=== PATIENT | male | born 1965 | race Caucasian/White ===

== ENCOUNTER 2021-12-21 08:32 | Inpatient (IN) | payer OTHER ==
[~2021-12-21] VITALS: Ht 175.3 cm; Wt 84.5 kg
[2021-12-21 09:17] LABS: BASOPHILS ABSOLUTE AUTO 0.01 K/mm3 (0.00-0.23); BASOPHILS PERCENT AUTO 0 % (0-2); EOSINOPHILS PERCENT AUTO 0 % (0-6); Hematocrit 40.3 % (37.0-53.0); Hemoglobin 12.9 g/dL (13.5-17.5); IMMATURE GRAN ABSOLUTE AUTO 0.04 K/mm3 (0.00-0.10); IMMATURE GRAN PERCENT AUTO 0 % (0-1); LYMPHOCYTES ABSOLUTE AUTO 1.13 K/mm3 (0.84-5.20); LYMPHOCYTES PERCENT AUTO 11 % (21-46); MONOCYTES ABSOLUTE AUTO 0.58 K/mm3 (0.16-1.47); MONOCYTES PERCENT AUTO 5 % (4-13); Mean Corpuscular HGB 25.9 pg (26.0-34.0); Mean Corpuscular Volume 81 fL (80-100); Mean Platelet Volume 12.4 fL (9.1-12.4); NEUTROPHILS ABSOLUTE AUTO 9.03 K/mm3 (1.96-9.15); NEUTROPHILS PERCENT AUTO 84 % (41-73); NRBC ABSOLUTE 0.06 K/mm3 (0.00-0.02); NRBC Auto 0.6 /100 WBC (0.0-0.2); Platelet Count 226 K/mm3 (150-400); RDW Coefficient Variation 15.2 % (11.7-14.2); RDW Standard Deviation 44.6 fL (35.1-46.3); Red Blood Cell Count 4.98 M/mm3 (4.30-5.90); White Blood Cell Count 10.79 K/mm3 (4.00-11.30)
[2021-12-21 09:22] LABS: International Normalized Ratio 1.58; Prothrombin Time Results 16.1 Sec (9.7-11.5)
[2021-12-21 09:29] LABS: Alanine Aminotransfer (ALT/SGP 343 U/L (12-78); Albumin/Globulin Ratio 0.9 (0.8-1.8); Alk Phos 219 U/L (50-136); Anion Gap 11 mmol/L (6-16); Aspartate Aminotrans (AST/SGOT 221 U/L (12-37); Bilirubin, Total 3.1 mg/dL (0.1-1.0); Blood Urea Nitrogen 29 mg/dL (8-24); Bun/Creatinine Ratio 28.2 (12.0-20.0); CO2, Blood 22 mmol/L (21-32); Chloride, Blood 105 mmol/L (98-108); Creatinine, Blood 1.03 mg/dL (0.60-1.20); Ethanol (Alcohol), Blood, Med <3 mg/dL; Globulin, Blood 3.3 g/dL (2.2-4.0); Glomerular Filtration Rate 86 (60-); Glucose, Blood 158 mg/dL (70-99); Sodium, Blood 138 mmol/L (136-145); Total Protein, Blood 6.3 g/dL (6.4-8.2)
[2021-12-21] MEDS ORDERED: OMEP20ER PO (09:43)
[2021-12-21 11:36] LABS: U Amphetamine Screen DETECTED; U Barbituate Screen Not Detected; U Benzodiazapine Screen Not Detected; U Buprenorphine Screen Not Detected; U Cannabinoids Screen Not Detected; U Cocaine Screen Not Detected; U Methadone Screen Not Detected; U Methamphetamine Screen DETECTED; U Opiates Screen Not Detected; U Oxycodone Screen Not Detected; U Phencyclidine Screen Not Detected; U Propoxyphene Screen Not Detected
--- NOTE | 2021-12-21 12:50 | NUR ---
PATIENT ARRIVED FROM ER TODAY 12/21/21 AT 1230. ACUTE ISCHEMIC STROKE PATIENT IS A&OX4 BUT HAS SLURRED SPEECH WHICH CAN AT TIMES MAKE THE PATIENT FRUSTRATED BUT IS OTHERWISE COOPERATIVE AND OBEYS COMMANDS. PATIENT IS UNABLE TO MOVE RIGHT ARM OR LEG VOLUNTARILY. PULSES ON THE RIGHT ARM/LEG ARE FAINT. PATIENT IS ABLE TO MOVE HIS LEFT LEG AND ARM BETTER THOUGH HE DOES REPORT "SOME WEAKNESS IN LEFT LEG". AT THIS TIME IT IS EASIER FOR HIM TO ANSWER YES/NO QUESTIONS. FAMILY IS AT BEDSIDE. CALL LIGHT WITHIN REACH.
--- NOTE | 2021-12-21 16:45 | NUR ---
SHIFT SUMMARY: ACUTE ISCHEMIC STROKE PATIENT IS A&OX4 WHILE AWAKE THOUGH HAS BEEN INTERMITTENTLY SLEEPING SINCE ARRIVING FROM ER. PATIENTS OXYGEN SATS WILL DROP TO LOW 80'S WHEN SLEEPING DEEPLY. OXYMIZER MASK WITH 8L WAS ATTEMPTED AND HIS OXYGEN SATS FREIDA TO 100% BUT THEN HE WOKE UP AND TOOK IT OFF HE STATING "CORDS ANNOYING". AT THIS TIME HE IS ASLEEP WITH 2L NC ON WITH >90% OXYGEN SATS. HE DENIES CHEST PAIN, CHEST PRESSURE, OR HEADACHE AT THIS TIME. PATIENT IS STILL NOT VOLUNARILY MOVING HIS RIGHT ARM OR LEG. FAMILY MEMBERS TICKLED HIS RIGHT FOOT AND THEY REPORTED "HIS RIGHT LEG IS MOVING!". HE ALSO HAS SLURRED SPEECH AND YES/NO ANSWERS ARE EASIER FOR HIM TO RESPOND TO SINCE HE AT TIMES WILL GET FRUSTRATED WHEN HE CAN'T PRONOUNCE A WORD. CALL LIGHT WITHIN REACH. PATIENT IS RESTING IN BED WITH FAMILY MEMEBERS AT BEDSIDE. THE PLAN IS TO HAVE IV HEPARIN RUNNING THROUGH THE NIGHT AND THEN WILL BE SWITCHED TO ORALS IN THE MORNING. THEN HE WILL BE WORKING WITH PT/OT WELL TOMORROW TOO.
--- NOTE | 2021-12-21 20:20 | NUR ---
ASSUMED CARE PT SITTING IN BED WATCHING TV WITH AT BEDSIDE. PT IS A/O X 4 WITH SLURRED SPEECH. R FACIAL DROOP, R ARM FLACID, MINIMAL MOVEMENT IN R LEG. PT ABLE TO AWNSER QUESTIONS AND FOLLOW COMMANDS. DENIES PAIN. LUNG SOUNDS CLEAR WITH COARSE CRACKLES IN BASES. PT ON RA WHEN AWAKE AND 2L WHEN SLEEPING D/T DESATURATION. BLE COOL AND EDEMATOUS 2+. PT AND REFUSED PEPSID. HEPARIN INFUSING AT 18UNITS/KG/HR.
[2021-12-22 04:07] LABS: Hematocrit 39.1 % (37.0-53.0); Hemoglobin 12.3 g/dL (13.5-17.5); Mean Corpuscular HGB 25.6 pg (26.0-34.0); Mean Corpuscular HGB Conc 31.5 g/dL (31.5-36.5); Mean Corpuscular Volume 81 fL (80-100); NRBC ABSOLUTE 0.02 K/mm3 (0.00-0.02); NRBC Auto 0.2 /100 WBC (0.0-0.2); Platelet Count 189 K/mm3 (150-400); RDW Coefficient Variation 15.1 % (11.7-14.2); Red Blood Cell Count 4.81 M/mm3 (4.30-5.90); White Blood Cell Count 12.03 K/mm3 (4.00-11.30)
[2021-12-22 04:31] LABS: Albumin, Blood 2.7 g/dL (3.4-5.0); Albumin/Globulin Ratio 0.9 (0.8-1.8); Bilirubin, Total 2.5 mg/dL (0.1-1.0); Bun/Creatinine Ratio 24.8 (12.0-20.0); Calcium, Blood 8.2 mg/dL (8.5-10.1); Creatinine, Blood 1.01 mg/dL (0.60-1.20); Globulin, Blood 2.9 g/dL (2.2-4.0); Potassium, Blood 3.2 mmol/L (3.5-5.5); Total Protein, Blood 5.6 g/dL (6.4-8.2)
--- NOTE | 2021-12-22 04:45 | NUR ---
CALL TO MD CALL PLACED TO DR CARVAJAL REGARDING K+ 3.2. ORDERS RECEIVED.
--- NOTE | 2021-12-22 05:43 | NUR ---
SHIFT SUMMARY NO ACUTE EVENTS OVERNIGHT. VSS. LUNGS SOUNDS NOW COARSE T/O WITH CRACKLES IN THE BASES AND RML. NO TITRATION OF HEPARIN INDICATED. CONTINUES AT 18UNITS/KG/HR. AT BEDSIDE T/O NIGHT. PT AND EXPRESSED WISHES TO D/C TODAY. EDUCATION PROVIDED ON NEEDING PHYSICAL THERAPY, AND A PLAN IN PLACE BEFORE D/C. PT VOIDS IN URINAL, AND IS INCONT AT TIMES. PT REMAINS BEDREST UNTIL PHYSICAL THERAPY CAN EVALUATE PT. WILL REPORT TO ONCOMING NURSE.
--- NOTE | 2021-12-22 07:33 | NUR ---
NURSING PCU DAYSHIFT: Assumed care of pt at approx 0700. A/O, speech is slurred r/t recent cva, R facial droop along w/R side deficit, RUE is flaccid, minimal gross movement of RLE. Skin is intact w/no open wounds noted. Denies any pain/discomfort at rest. Tele in place, ST w/HR 110-120, no c/o CP/pressure, SBP 136 prior to a.m. meds, 2+ BLE edema (R>L) along w/general dependent edema. L/S fairly dim t/o w/fine bibasilar crackles, respirations shallow and irregular, significant periods of apnea while asleep which causes O2 saturation to decrease to the 80's though recovers to upper 90's when respirations return, no noted cough, cont O2 monitoring in place. Abd SNT, BT+, voiding using urinal w/assistance. PIV x1 w/hep gtt infusing at 28.8mls/hr (18/u/kg/hr) per pharmacy dosing. No s/s of acute distress at this time. Spouse and daughter at bedside. Chart reviewed by cardiology, new d/o received. Call light in reach, pt able to use w/o difficulty. Awaiting rounding from PMD, cont to monitor for any changes.
--- NOTE | 2021-12-22 17:02 | NUR ---
NURSING PCU DAYSHIFT SUMMARY: Pt has continued to do well t/o the shift. Worked with PT/OT, dangled at edge of bed for quite some time, even after therapy was completed. Continues to have R side deficit w/no improvement noted t/o shift. Reassessed by ST, diet upgraded to MS w/meds whole which pt is tolerating well and continues to have a good appetite. SBP 90's this evening, HR improved to 90-100. Remains edematous, continues to receive IV lasix as ordered. Respiratory status unchanged, O2 sat 95-100 on 2L NC PRN. S/O at bedside majority of shift w/additional family members to visit intermittently. Plan of care discussed as well as the importance of therapies for assessments and tx, pt and family verbalized understanding. No s/s of acute distress at this time, call light in reach, cont to monitor until rpt is given to NOC RN.
[2021-12-23 04:49] LABS: Hematocrit 38.3 % (37.0-53.0); Hemoglobin 12.2 g/dL (13.5-17.5); Mean Corpuscular HGB 25.8 pg (26.0-34.0); Mean Corpuscular HGB Conc 31.9 g/dL (31.5-36.5); Mean Corpuscular Volume 81 fL (80-100); Mean Platelet Volume 11.9 fL (9.1-12.4); NRBC ABSOLUTE 0.03 K/mm3 (0.00-0.02); NRBC Auto 0.3 /100 WBC (0.0-0.2); Platelet Count 205 K/mm3 (150-400); RDW Coefficient Variation 14.9 % (11.7-14.2); RDW Standard Deviation 44.5 fL (35.1-46.3); Red Blood Cell Count 4.73 M/mm3 (4.30-5.90)
[2021-12-23 05:18] LABS: Albumin, Blood 2.5 g/dL (3.4-5.0); Albumin/Globulin Ratio 0.8 (0.8-1.8); Bilirubin, Total 1.8 mg/dL (0.1-1.0); Bun/Creatinine Ratio 24.7 (12.0-20.0); Calcium, Blood 8.1 mg/dL (8.5-10.1); Creatinine, Blood 0.97 mg/dL (0.60-1.20); Potassium, Blood 3.3 mmol/L (3.5-5.5); Total Protein, Blood 5.5 g/dL (6.4-8.2)
--- NOTE | 2021-12-23 05:56 | NUR ---
OPERATIONS INTELLIGENCE SUMMARY PT IS ALERT AND ORIENTED COMMUNICATING APPROPRIATELY W STAFF THIS SHIFT DESPITE HEAVILY SLURRED SPEECH. PT'S R ARM REMAINS FLACCID W NO MOTOR MOVEMENT. PT IS ABLE TO MOVE HIS R LEG MAINLY FROMHIS HIP BUT SHOWS NO MOTOR MOVEMENT IN HIS R FOOT. R SIDED FACIAL DROOP PRESENT. PT AND FAMILY EDUCATED ON ROM AND HELPING THE PT THROUGH OUT THE SHIFT MOVING HIS R ARM AND LEG. O2 SATS >92% ON RM AIR. BP SOFT AT START OF THE SHIFT SO HIS COREG AND ZESRTIL WERE HELD. TELE SHOWING SR/ST 90'S-100'S. PT AFEBRILE. PT REMAINS TACHYPNEIC BUT IN NO DISTRESS. PT SWALLOWING PILLS WHOLE IN APPLESAUCE W NO PROBLEMS. WILL REPORT TO ONCOMING RN.
--- NOTE | 2021-12-23 17:59 | NUR ---
SHIFT SUMMARY PT A&Ox4, CALL AND COMMUNICATES NEEDS APPROPIRATELY. SPEECH IS STILL SLURRRED D/T R SIDED TONGUE PARALYSIS, THOUGH FAMILY STATES THAT IT IS SLIGHTLY MORE CLEAR THIS AFTERNOON. Sp02> 92% RA, ST 100'S WITH PVC's. BP SOFT AFTER MORNING MEDICATIONS, DISCUSSED WITH DR. HERNANDEZ AND SHE MADE ADJUSTMENTS TO BP MANAGEMENT MEDICATIONS. PT WORKED WITH OT AND PHYICAL THERAPY TODAY AND WAS ABLE TO TRANSFER TO CHAIR, STAND PIVOT WITH [address] NOT ABLE TO MOVE RUE AT ALL. PT ABLE TO MOVE RLE AT THE HIP AND WIGGLE HIS FOOT. WILL CONTINUE TO MONITOR AND PROVIDE CARE UNTIL REPORT TO NOC.
[2021-12-24 04:04] LABS: Hematocrit 39.9 % (37.0-53.0); Hemoglobin 12.4 g/dL (13.5-17.5); Mean Corpuscular HGB 25.3 pg (26.0-34.0); Mean Corpuscular HGB Conc 31.1 g/dL (31.5-36.5); Mean Corpuscular Volume 81 fL (80-100); Mean Platelet Volume 11.9 fL (9.1-12.4); NRBC ABSOLUTE 0.02 K/mm3 (0.00-0.02); NRBC Auto 0.2 /100 WBC (0.0-0.2); Platelet Count 231 K/mm3 (150-400); RDW Coefficient Variation 14.8 % (11.7-14.2); White Blood Cell Count 9.34 K/mm3 (4.00-11.30)
[2021-12-24 04:24] LABS: Magnesium, Blood 1.8 mg/dL (1.6-2.4)
[2021-12-24 04:25] LABS: Albumin, Blood 2.4 g/dL (3.4-5.0); Albumin/Globulin Ratio 0.7 (0.8-1.8); Bilirubin, Total 1.1 mg/dL (0.1-1.0); Bun/Creatinine Ratio 23.1 (12.0-20.0); Calcium, Blood 8.2 mg/dL (8.5-10.1); Creatinine, Blood 0.95 mg/dL (0.60-1.20); Globulin, Blood 3.3 g/dL (2.2-4.0); Potassium, Blood 3.4 mmol/L (3.5-5.5); Total Protein, Blood 5.7 g/dL (6.4-8.2)
--- NOTE | 2021-12-24 05:37 | NUR ---
CLINICAL MANAGER HOME CARE SUMMARY PT IS ALERT AND ORIENTED COMMUNICATING APPROPRIATELY W STAFF THIS SHIFT. PT'S NEURO IMPROVING FROM PREVIOUS CLINICAL MANAGER HOME CARE HE WAS ABLE TO SLI=GHTLY MOVE HIS R FOOT AND TOES. R ARM STILL FLACCID. O2 SATS >90% ON RM AIR. BP WNL AND STABLE. TELE SHOWING SR 90'S-100'S THIS SHIFT. PT'S I&O'S NOT ACCURATE THE PT'S FAMILY HAVE BEEN BRINGING HIM FOOD AND DRINKS WHICH HAVE BEEN UNACCOUNTED FOR. WILL REPORT TO ONCOMING RN.
[2021-12-24] MEDS ORDERED: ACET500 PO (11:45)
[2021-12-24] MEDS ORDERED: ELIQUIS5 M2 PO (11:46)
[2021-12-24] MEDS ORDERED: Carvedilol6.25 MG PO (11:46)
[2021-12-24] MEDS ORDERED: LISI5 PO (11:47)
[2021-12-24] MEDS ORDERED: MIRALAX17 GM PO (11:47)
[2021-12-24] MEDS ORDERED: ATOR20 PO (11:48)
[2021-12-24] MEDS ORDERED: POTASSIUM CHLO20 MEQ PO (11:48)
[2021-12-24] MEDS ORDERED: FURO40 PO (11:50)
[2021-12-24] MEDS ORDERED: METF500C PO (11:51)
--- NOTE | 2021-12-24 13:22 | NUR ---
DISCHARGE SUMMARY PT A&Ox4, COMMUNICATES NEEDS APPROPRIATELY. SpO2> 92% RA, NSR-ST 90-100's WITH PVC's, BP STABLE. PT WITH NO CHANGES IN ABLITY TO MOVE RIGHT EXTREMITIES, FACIAL DROOP AND TONGUE PARALYSIS STILL PRESENT ON R SIDE. DISCHARGE INSTRUCTIONS PROVIDED TO PT AND FAMILY. PT ABLE TO STAND PIVOT TRANSFER FROM CHAIR TO WHEELCHAIR WITH A TWO PERSON ASSIST AND GB. THIS RN OBSERVED FAMILY PLACE GB PROPERLY AND USE GOOD/SAFE BODY MECHANICS WHILE ASSISTING THIS RN WITH TRANSFERING THE PT. AT APPROXIMATELY 1315, PT TAKEN OUT TO VEHICLE VIA WHEELCHAIR WITH THIS RN AND FAMILY, ALL PT/FAMILY BELONGINGS PRESENT. PT SAFELY TRANSFERED FROM WHEELCHAIR TO FRONT PASSENGER SIDE SEAT WITH A TWO PERSON ASSIST AND GB.
== END 2021-12-24 13:59 | disposition home health service (06) | DRG 64 ==
LOC: ER 08:32 → PCU 11:06
PROVIDERS: Internal Medicine; Student in an Organized Health Care Education/Training Program; ADMIT Internal Medicine
DX: I63.89 Other cerebral infarction (principal); I50.23 Acute on chronic systolic (congestive) heart failure; G81.91 Hemiplegia, unspecified affecting right dominant side; I24.0 Acute coronary thrombosis not resulting in myocardial infarction; I42.9 Cardiomyopathy, unspecified; R47.81 Slurred speech; R13.10 Dysphagia, unspecified; F12.10 Cannabis abuse, uncomplicated; R29.709 NIHSS score 9; I08.1 Rheumatic disorders of both mitral and tricuspid valves; I27.20 Pulmonary hypertension, unspecified; R74.01 Elevation of levels of liver transaminase levels; K76.1 Chronic passive congestion of liver; F15.10 Other stimulant abuse, uncomplicated; E87.6 Hypokalemia; K21.9 Gastro-esophageal reflux disease without esophagitis; R47.1 Dysarthria and anarthria; I11.0 Hypertensive heart disease with heart failure; E11.65 Type 2 diabetes mellitus with hyperglycemia; Z87.442 Personal history of urinary calculi; Z88.8 Allergy status to other drugs, medicaments and biological substances; Z87.891 Personal history of nicotine dependence; Z79.899 Other long term (current) drug therapy
CPT/HCPCS: 36415; 70450; 70496; 70498; 80053; 82947; 83036; 83735; 83880; 85025; 85027; 85520; 85610; 85730; 92526; 92610; 93005; 93010; 93306; 97112; 97162; 97166; 97530; 99285-25; A9270; G0480; J1644; J1940; J7030; Q9967